=== PATIENT | male | born 1940 | race Caucasian/White ===

== ENCOUNTER → 2024-01-20 07:26 | Outpatient (REF) | payer MEDICARE, OTHER, SELFPAY ==
[2024-01-20 09:35] LABS: TSH 0.74 uIU/ml (0.47-4.68)
[2024-01-20 09:54] LABS: Vitamin B12 280 pg/ml (239-931)
[2024-01-20 16:30] LABS: Syphilis/T. pallidum Ab Reflex Negative (Negative)
== END ==
LOC: RAD 07:26
PROVIDERS: ATTENDING PHYSICIAN Psychiatry & Neurology Neurology; FAMILY PHYSICIAN Family Medicine
DX: R13.10 Dysphagia, unspecified (principal); R41.89 Other symptoms and signs involving cognitive functions and awareness; K46.0 Unspecified abdominal hernia with obstruction, without gangrene
CPT/HCPCS: 36415; 74230; 82607; 84443; 86780; 92611

== ENCOUNTER → 2024-02-10 09:36 | Outpatient (REF) | payer MEDICARE, OTHER, SELFPAY | LOC: MRI 3T 09:36 | PROVIDERS: ATTENDING PHYSICIAN Psychiatry & Neurology Neurology; FAMILY PHYSICIAN Family Medicine | DX: R41.89 Other symptoms and signs involving cognitive functions and awareness (principal) | CPT/HCPCS: 70553; A9575 ==

== ENCOUNTER → 2024-03-08 07:07 | Outpatient (REF) | payer MEDICARE, OTHER, SELFPAY ==
[2024-03-08 08:37] LABS: Glycohemoglobin (HgbA1c) 6.6 % (4.0-5.6)
[2024-03-08 09:18] LABS: Vitamin B12 474 pg/ml (239-931)
[2024-03-09 17:19] LABS: Syphilis/T. pallidum Ab Reflex Negative (Negative)
[2024-03-09 19:23] LABS: HIV Combo Negative (Negative)
[2024-03-11 03:10] LABS: Methylmalonic Acid 0.11 umol/L (0.00-0.40)
[2024-03-11 15:42] LABS: Alpha-Tocopherol 5.9 mg/L (5.5-18.0); Gamma-Tocopherol 0.5 mg/L (0.0-6.0)
[2024-03-12 11:01] LABS: Vitamin B1, Whole Blood 145 nmol/L (70-180)
[2024-03-12 12:29] LABS: Albumin 4.21 g/dL (3.75-5.01); Alpha 1 Globulin 0.29 g/dL (0.19-0.46); Alpha 2 Globulin 0.75 g/dL (0.48-1.05); Monoclonal Protein 0.27 g/dL (<=0.00); SPEP IFE Reflex IFE Done; Total Protein-Electrophoresis 6.7 g/dL (6.3-8.2)
== END ==
LOC: REG 07:07
PROVIDERS: ATTENDING PHYSICIAN Psychiatry & Neurology Neurology; FAMILY PHYSICIAN Family Medicine; OTHER PHYSICIAN Internal Medicine Gastroenterology; REFERRING PHYSICIAN Psychiatry & Neurology Neurology
DX: G62.9 Polyneuropathy, unspecified (principal); K86.1 Other chronic pancreatitis; Z79.899 Other long term (current) drug therapy
CPT/HCPCS: 36415; 82607; 82784; 83036; 83921; 84155; 84165; 84425; 84446; 86334; 86780; 87389

== ENCOUNTER → 2024-03-20 09:17 | Outpatient (REF) | payer MEDICARE, OTHER, SELFPAY | LOC: RAD 09:17 | PROVIDERS: ATTENDING PHYSICIAN Internal Medicine Gastroenterology; FAMILY PHYSICIAN Family Medicine; REFERRING PHYSICIAN Psychiatry & Neurology Neurology | DX: R13.10 Dysphagia, unspecified (principal) | CPT/HCPCS: 74221 ==

== ENCOUNTER → 2024-05-10 07:01 | Outpatient (REF) | payer MEDICARE, OTHER, SELFPAY ==
[2024-05-10 07:56] LABS: % Basophils 0.2 % (0-2); % Eosinophils 1.3 % (0-6); % Immature Granulocytes 0.3 % (0-0.5); % Lymphocytes 25.4 % (20.5-51.1); % Monocytes 6.1 % (1.7-9.3); % Neutrophils 66.7 % (42.2-75.2); Absolute Eosinophils 0.1 10^3/uL (0-0.7); Absolute Lymphocytes 2.3 10^3/uL (1.2-3.4); Absolute Monocytes 0.6 10^3/uL (0.1-0.6); Hematocrit 44.9 % (39.0-52.0); Hemoglobin 15.5 g/dL (13.0-18.0); Mean Corp Hgb Conc. 34.5 g/dL (33.0-37.0); Mean Corpuscular Hgb 32.9 pg (27.0-31.0); Mean Corpuscular Volume 95.3 fL (80.0-94.0); Mean Platelet Volume 9.4 fL (7.4-10.4); Nucleated Red Blood Cells % 0 % (-); Platelet Count 260 10^3/uL (130-400); Red Blood Cell Count 4.71 10^6/uL (4.70-6.10); Red Cell Dist. Width 12.3 % (11.5-14.5)
[2024-05-10 08:55] LABS: ALT (SGPT) 18 U/L (0-50); AST (SGOT) 22 U/L (17-59); Albumin 4.3 g/dl (3.5-5.0); Alkaline Phosphatase 57 U/L (38-126); Blood Urea Nitrogen 17 mg/dl (9-20); Calcium 8.9 mg/dl (8.4-10.2); Carbon Dioxide 28 mmol/L (22-30); Chloride 101 mmol/L (98-107); Glucose 117 mg/dl (70-99); HDL Cholesterol 35 mg/dl; LDL Cholesterol, Calculated 37 mg/dl; Potassium 5.1 mmol/L (3.5-5.1); Sodium 135 mmol/L (135-145); Total Bilirubin 0.7 mg/dl (0.2-1.3); Total Cholesterol 88 mg/dl (50-199); Total Protein 6.8 g/dl (6.3-8.2); Triglyceride 80 mg/dl (10-149); Very Low Density Lipoprotein 16 mg/dl (0-30); eGFR > 60.00
[2024-05-10 09:50] LABS: Glycohemoglobin (HgbA1c) 5.9 % (4.0-5.6)
== END ==
LOC: REG 07:01
PROVIDERS: ATTENDING PHYSICIAN Family Medicine; OTHER PHYSICIAN Internal Medicine Hematology & Oncology
DX: E11.69 Type 2 diabetes mellitus with other specified complication (principal); I10 Essential (primary) hypertension; E78.1 Pure hyperglyceridemia
CPT/HCPCS: 36415; 80053; 80061; 83036; 85025

== ENCOUNTER → 2024-06-02 09:25 | Outpatient (REF) | payer MEDICARE, OTHER, SELFPAY | LOC: PAVMRI 09:25 | PROVIDERS: ATTENDING PHYSICIAN Psychiatry & Neurology Neurology; FAMILY PHYSICIAN Family Medicine | DX: R93.7 Abnormal findings on diagnostic imaging of other parts of musculoskeletal system (principal) | CPT/HCPCS: 72141 ==

== ENCOUNTER → 2024-08-09 07:55 | Outpatient (REF) | payer MEDICARE, OTHER, SELFPAY ==
[2024-08-09 10:17] LABS: % Basophils 0.3 % (0-2); % Eosinophils 1.2 % (0-6); % Immature Granulocytes 0.4 % (0-0.5); % Lymphocytes 24.2 % (20.5-51.1); % Monocytes 5.6 % (1.7-9.3); % Neutrophils 68.3 % (42.2-75.2); Absolute Eosinophils 0.1 10^3/uL (0-0.7); Absolute Lymphocytes 2.5 10^3/uL (1.2-3.4); Absolute Monocytes 0.6 10^3/uL (0.1-0.6); Hematocrit 41.5 % (39.0-52.0); Hemoglobin 14.3 g/dL (13.0-18.0); Mean Corp Hgb Conc. 34.5 g/dL (33.0-37.0); Mean Corpuscular Hgb 32.3 pg (27.0-31.0); Mean Corpuscular Volume 93.7 fL (80.0-94.0); Mean Platelet Volume 9.2 fL (7.4-10.4); Nucleated Red Blood Cells % 0 % (-); Platelet Count 337 10^3/uL (130-400); Red Blood Cell Count 4.43 10^6/uL (4.70-6.10); Red Cell Dist. Width 12.5 % (11.5-14.5); White Blood Cell Count 10.3 10^3/uL (4.8-10.8)
[2024-08-09 10:59] LABS: ALT (SGPT) < 10 U/L (0-50); AST (SGOT) 17 U/L (17-59); Albumin 4.5 g/dl (3.5-5.0); Alkaline Phosphatase 65 U/L (38-126); Blood Urea Nitrogen 19 mg/dl (9-20); Calcium 9.4 mg/dl (8.4-10.2); Carbon Dioxide 25 mmol/L (22-30); Chloride 97 mmol/L (98-107); Glucose 142 mg/dl (70-99); Potassium 4.8 mmol/L (3.5-5.1); Sodium 136 mmol/L (135-145); Total Bilirubin 0.4 mg/dl (0.2-1.3); Total Protein 6.7 g/dl (6.3-8.2); eGFR > 60.00
[2024-08-11 01:17] LABS: Beta-2-Microglobulin 1.9 mg/L (<=3.0)
== END ==
LOC: REG 07:55
PROVIDERS: ATTENDING PHYSICIAN Internal Medicine Hematology & Oncology; FAMILY PHYSICIAN Family Medicine
DX: C88.0 Waldenstrom macroglobulinemia (principal)
CPT/HCPCS: 36415; 80053; 82232; 82784; 83521; 84155; 84165; 85025; 86334

== ENCOUNTER → 2024-11-23 06:37 | Outpatient (REF) | payer MEDICARE, OTHER, SELFPAY ==
[2024-11-23 07:52] LABS: ALT (SGPT) 27 U/L (0-50); AST (SGOT) 23 U/L (17-59); Albumin 4.3 g/dl (3.5-5.0); Alkaline Phosphatase 60 U/L (38-126); Blood Urea Nitrogen 13 mg/dl (9-20); Carbon Dioxide 27 mmol/L (22-30); Chloride 95 mmol/L (98-107); Glucose 111 mg/dl (70-99); HDL Cholesterol 35 mg/dl; LDL Cholesterol, Calculated 47 mg/dl; Potassium 4.6 mmol/L (3.5-5.1); Sodium 131 mmol/L (135-145); Total Bilirubin 0.3 mg/dl (0.2-1.3); Total Cholesterol 103 mg/dl (50-199); Total Protein 6.7 g/dl (6.3-8.2); Triglyceride 107 mg/dl (10-149); Very Low Density Lipoprotein 21 mg/dl (0-30); eGFR > 60.00
[2024-11-23 09:16] LABS: Microalbumin, Random Urine 14.3 mg/dl (0.6-1.7)
[2024-11-23 09:19] LABS: Microalbumin/creatinine Ratio 188.4 mg/g
[2024-11-23 11:32] LABS: Glycohemoglobin (HgbA1c) 5.7 % (4.0-5.6)
== END ==
LOC: REG 06:37
PROVIDERS: ATTENDING PHYSICIAN Internal Medicine Cardiovascular Disease; FAMILY PHYSICIAN Family Medicine
DX: E11.69 Type 2 diabetes mellitus with other specified complication (principal)
CPT/HCPCS: 36415; 80053; 80061; 82043; 82570; 83036

== ENCOUNTER → 2025-02-12 07:25 | Outpatient (REF) | payer MEDICARE, OTHER, SELFPAY ==
[2025-02-12 07:59] LABS: % Basophils 0.4 % (0-2); % Eosinophils 1.3 % (0-6); % Immature Granulocytes 0.5 % (0-0.5); % Monocytes 7.8 % (1.7-9.3); Absolute Eosinophils 0.1 10^3/uL (0-0.7); Absolute Lymphocytes 2.1 10^3/uL (1.2-3.4); Absolute Monocytes 0.6 10^3/uL (0.1-0.6); Absolute Neutrophils 4.9 10^3/uL (1.4-6.5); Hematocrit 43.1 % (39.0-52.0); Hemoglobin 14.5 g/dL (13.0-18.0); Mean Corp Hgb Conc. 33.6 g/dL (33.0-37.0); Mean Corpuscular Hgb 33.4 pg (27.0-31.0); Mean Corpuscular Volume 99.3 fL (80.0-94.0); Mean Platelet Volume 8.7 fL (7.4-10.4); Nucleated Red Blood Cells % 0 % (-); Platelet Count 261 10^3/uL (130-400); Red Blood Cell Count 4.34 10^6/uL (4.70-6.10); Red Cell Dist. Width 12.8 % (11.5-14.5); White Blood Cell Count 7.8 10^3/uL (4.8-10.8)
[2025-02-12 08:33] LABS: ALT (SGPT) 18 U/L (0-50); AST (SGOT) 15 U/L (17-59); Alkaline Phosphatase 70 U/L (38-126); Blood Urea Nitrogen 20 mg/dl (9-20); Calcium 9.4 mg/dl (8.4-10.2); Carbon Dioxide 29 mmol/L (22-30); Chloride 99 mmol/L (98-107); Glucose 139 mg/dl (70-99); Potassium 5.4 mmol/L (3.5-5.1); Sodium 134 mmol/L (135-145); Total Bilirubin 0.7 mg/dl (0.2-1.3); Total Protein 6.3 g/dl (6.3-8.2); eGFR > 60.00
[2025-02-13 20:59] LABS: Beta-2-Microglobulin 2.2 mg/L (<=3.0)
[2025-02-14 12:16] LABS: Albumin 4.12 g/dL (3.75-5.01); Alpha 1 Globulin 0.26 g/dL (0.19-0.46); Alpha 2 Globulin 0.72 g/dL (0.48-1.05); Free Kappa Light Chains,Quant 20.05 mg/L (3.30-19.40); IgA 117 mg/dL (68-408); IgG 514 mg/dL (768-1632); IgM 352 mg/dL (35-263); Immunofixation Electrophoresis IFE Done; Kappa/Lambda Fr Light Ratio 2.05 (0.26-1.65); Monoclonal Protein 0.26 g/dL (<=0.00); Total Protein-Electrophoresis 6.4 g/dL (6.3-8.2)
== END ==
LOC: REG 07:25
PROVIDERS: ATTENDING PHYSICIAN Internal Medicine Hematology & Oncology; FAMILY PHYSICIAN Family Medicine; REFERRING PHYSICIAN Internal Medicine Cardiovascular Disease
DX: C88.00 Waldenstrom macroglobulinemia not having achieved remission (principal); K56.609 Unspecified intestinal obstruction, unspecified as to partial versus complete obstruction
CPT/HCPCS: 36415; 80053; 82232; 82784; 83521; 84155; 84165; 85025; 86334

== ENCOUNTER → 2025-05-13 07:46 | Outpatient (REF) | payer MEDICARE, OTHER, SELFPAY ==
[2025-05-13 08:44] LABS: % Basophils 0.4 % (0-2); % Eosinophils 1.6 % (0-6); % Immature Granulocytes 0.4 % (0-0.5); % Lymphocytes 27.4 % (20.5-51.1); % Monocytes 7.5 % (1.7-9.3); % Neutrophils 62.7 % (42.2-75.2); Absolute Eosinophils 0.1 10^3/uL (0-0.7); Absolute Lymphocytes 2.1 10^3/uL (1.2-3.4); Absolute Monocytes 0.6 10^3/uL (0.1-0.6); Absolute Neutrophils 4.8 10^3/uL (1.4-6.5); Hematocrit 42.5 % (39.0-52.0); Hemoglobin 14.2 g/dL (13.0-18.0); Mean Corp Hgb Conc. 33.4 g/dL (33.0-37.0); Mean Corpuscular Hgb 33.5 pg (27.0-31.0); Mean Corpuscular Volume 100.2 fL (80.0-94.0); Mean Platelet Volume 8.9 fL (7.4-10.4); Nucleated Red Blood Cells % 0 % (-); Platelet Count 335 10^3/uL (130-400); Red Blood Cell Count 4.24 10^6/uL (4.70-6.10); Red Cell Dist. Width 12.6 % (11.5-14.5); White Blood Cell Count 7.6 10^3/uL (4.8-10.8)
[2025-05-13 09:41] LABS: ALT (SGPT) < 10 U/L (0-50); AST (SGOT) 14 U/L (17-59); Albumin 4.4 g/dl (3.5-5.0); Alkaline Phosphatase 45 U/L (38-126); Blood Urea Nitrogen 22 mg/dl (9-20); Calcium 9.1 mg/dl (8.4-10.2); Carbon Dioxide 26 mmol/L (22-30); Chloride 104 mmol/L (98-107); Glucose 133 mg/dl (70-99); HDL Cholesterol 38 mg/dl; LDL Cholesterol, Calculated 60 mg/dl; Sodium 137 mmol/L (135-145); Total Bilirubin 0.7 mg/dl (0.2-1.3); Total Cholesterol 116 mg/dl (50-199); Total Protein 6.4 g/dl (6.3-8.2); Triglyceride 91 mg/dl (10-149); Very Low Density Lipoprotein 18 mg/dl (0-30); eGFR > 60.00
[2025-05-13 10:23] LABS: Glycohemoglobin (HgbA1c) 5.9 % (4.0-5.6)
== END ==
LOC: REG 07:46
PROVIDERS: ATTENDING PHYSICIAN Family Medicine; FAMILY PHYSICIAN Internal Medicine Cardiovascular Disease
DX: E78.1 Pure hyperglyceridemia (principal); E11.69 Type 2 diabetes mellitus with other specified complication; I10 Essential (primary) hypertension
CPT/HCPCS: 36415; 80053; 80061; 83036; 85025

== ENCOUNTER 2025-05-27 17:46 | Emergency (ER) | payer MEDICARE, OTHER, SELFPAY ==
[2025-05-27 17:49] VITALS: BP 167/97
--- NOTE | 2025-05-27 18:26 | EDRN ---
Destiny Kirby PA in room w/ pt at this time.
[2025-05-27 18:33] VITALS: BMI 25.2
--- NOTE | 2025-05-27 18:33 | ED.GENMED ---
History of Present Illness
General
Chief Complaint: Foreign Body Ingestion
Source: patient
Time Seen by Provider: 05/27/25 18:26
History of Present Illness
History of Present Illness:
84-year-old male with past medical history of hypertension, pancreatitis, pbe-lpzsofc-[id number] diabetes, Parkinson's disease presenting to the emergency department at the request of his dentist for evaluation after he was getting dental work done
earlier today around 1030, piece of the equipment broke and patient accidentally swallowed the equipment. He had an x-ray ordered for him at outpatient facility with the foreign body noted to be likely within the stomach and was promptly sent to
the emergency department. Patient is without any pain presently, no difficulty breathing or any other concerns. Patient states that the dentist was concerned due to patient having constipation secondary to his Parkinson's medications. He follows
with Dr. Soni from GI.
Past History
Past History
ED Past Medical History: CAD, HTN, NIDDM and Other (chronic pancreatitis)
ED Past Surgical History: Appendectomy, Cardiac and Cholecystectomy
Social History
Tobacco: Non-smoker
Alcohol: Former
Drug: None
Personal:
Living: with family
Review of Systems
Review of Systems
All Other Systems: ROS reviewed and negative except as documented in HPI and ROS
Phy Exam
Physical Exam
Physical Exam:
GENERAL: Alert , in no apparent distress
HEAD: NCAT
EYE: clear conjunctiva
NECK: Supple
ENT: mmm.
CARDIAC: Regular rate and rhythm .
LUNGS: Clear breath sounds bilaterally, no acute respiratory distress, no wheezes/rales/rhonchi, no stridor
ABDOMEN: Soft, without focal tenderness, no r/g, no cvat
NEUROLOGICAL: Alert and oriented
SKIN: Warm and dry, skin intact.
PSYCH: Normal and appropriate interaction.
Scores
Heart Failure Risk
Heart Failure Risk Score: Not Applicable
Heart Score for Chest Pain Patients
STEMI patient?: Not applicable
Withdrawal Assessment of Alcohol
Withdrawal Assessment Completed?: Not applicable
Course
Orders/Labs/Results
Orders:
Orders
05/27/25 17:57
Abdominal Series [CR Obstruct Series W/pa Chest] Urgent
Comment:
Reason For Exam: pt swallowed foriegn object today at dentist
Vital Signs
Initial and Last Documented VS:
Initial Vital Signs
Temp Pulse Resp BP Pulse Ox
98.4 F 88 18 167/97 97
05/27/25 17:49 05/27/25 17:49 05/27/25 17:49 05/27/25 17:49 05/27/25 17:49
Last Documented Vital Signs
Temp Pulse Resp BP Pulse Ox
98.4 F 88 18 167/97 97
05/27/25 17:49 05/27/25 17:49 05/27/25 17:49 05/27/25 17:49 05/27/25 18:39
MDM/Problems Addressed
Differential Diagnosis Includes:
Accidental foreign body ingestion
No symptoms to suggest obstruction
Aspiration
Bowel perforation
MDM/Problems Addressed:
84-year-old male presenting to the ER for evaluation after he excellently swallowed a broken piece of dental equipment while getting dental work done today. He is in no complaints presently. X-ray from earlier today was reviewed with foreign body
appearing to be within the stomach, repeat obstructive series done now shows foreign body likely within the small bowel. Given he is without any pain, foreign body is moving and at present time does not appear to be able to be retrieved via
endoscopy will send patient home with return precautions to the ER for increased pain, fevers or, vomiting or any other concerns as well as needing a repeat abdominal x-ray within 2 to 3 days. Given he follows with GI here will notify them as well.
Anticipate patient is otherwise stable for discharge home.
*Radiology
Radiology exam reviewed: preliminary read by ED provider (Foreign body within the small bowel)
*Pulse Oximetry
SaO2: 97
Oxygen Mode of Delivery: Room air
Patient hypoxic: no
*Critical Care Note
Total Time (30-74mins, 75-104mins- exclusive of procedures): Not Applicable
Data Reviewed
Review of Other/Old Records Reveals: Radiology Studies
ED Attending Note
-
Portions of this chart may have been created with voice recognition software.� Occasional wrong word or��sound alike� substitutions may have occurred due to the inherent limitations of voice recognition software.
Discharge Plan
Departure
Patient Disposition: Home (Routine Discharge)
Date of Disposition: 05/27/25
Time of Disposition: 18:39
Patient with high blood pressure during this ER visit?: Yes
Discharge Problem:
Foreign body alimentary tract
Instructions: Swallowed Objects, Adult (DC)
Prescriptions:
No Action
brimonidine-timolol [Combigan] 1 DROP drops
1 drp BOTH EYES BID
loratadine 10 MG tablet
10 mg PO DAILYPRN PRN (Reason: allergies)
nitroglycerin 0.4 MG tablet, sublingual
0.4 mg sublingual [id number] PRN (Reason: chest pain) Qty: 25 0RF
aspirin 81 MG tablet,chewable
81 mg PO QPM
travoprost 0.004 % Drops
1 drp LEFT EYE HS
omega-3 fatty acids Capsule
3,000 mg PO DAILY
Rocklatan 0.02-0.005 % Drops
1 drp RIGHT EYE HS
Super Beta Prostate
1 tab PO BID
atorvastatin 10 mg Tablet
10 mg PO QPM
clopidogrel [Plavix] 75 mg Tablet
75 mg PO DAILY
acetaminophen 500 mg Tablet
500 mg PO Q6H PRN (Reason: pain)
isosorbide mononitrate 30 mg Tablet Extended Release 24 Hr
30 mg PO DAILY Qty: 90 3RF
Referrals:
Janice Snyder MD [Family Provider, Family Practice]
Interventions
Interventions:
*Risk Screen - Suicide Last Done: 05/27/25 18:33
*General Assessment Last Done: 05/27/25 18:33
*Neglect/Abuse Screening Last Done: 05/27/25 18:33
*ED- Fall Risk Assessment Last Done: 05/27/25 18:33
*ED COVID-19 Vaccine History Last Done: 05/27/25 18:33
*Nursing Disposition Last Done: 05/27/25 18:43
NG-Pdwufs-Kgulilcojz Assessment Last Done: 05/27/25 18:36
ED- Pulmonary Assessment Last Done: 05/27/25 18:36
ED-EENT Assessment Last Done: 05/27/25 18:36
Discharge Date and Time
Discharge Date/Time: 05/27/25 18:43
Print Language: TANZANIAN
== END 2025-05-27 18:43 | disposition home or self-care (01) ==
LOC: EMR 17:46
PROVIDERS: EMERGENCY PHYSICIAN Emergency Medicine; FAMILY PHYSICIAN Family Medicine
DX: T18.3XXA Foreign body in small intestine, initial encounter (principal); W44.8XXA Other foreign body entering into or through a natural orifice, initial encounter; I10 Essential (primary) hypertension; E11.9 Type 2 diabetes mellitus without complications; G20.A1 Parkinson's disease without dyskinesia, without mention of fluctuations; I25.10 Atherosclerotic heart disease of native coronary artery without angina pectoris; K86.1 Other chronic pancreatitis; Z90.49 Acquired absence of other specified parts of digestive tract; Z88.8 Allergy status to other drugs, medicaments and biological substances
CPT/HCPCS: 99283; 71046; 74018; 74022

== ENCOUNTER → 2025-05-31 08:37 | Outpatient (REF) | payer MEDICARE, OTHER, SELFPAY | LOC: RAD 08:37 | PROVIDERS: FAMILY PHYSICIAN Family Medicine; OTHER PHYSICIAN Internal Medicine Gastroenterology | DX: T18.8XXA Foreign body in other parts of alimentary tract, initial encounter (principal) | CPT/HCPCS: 74018 ==

== ENCOUNTER → 2025-06-20 10:35 | Outpatient (REF) | payer MEDICARE, OTHER, SELFPAY | LOC: RAD 10:35 | PROVIDERS: ATTENDING PHYSICIAN Family Medicine; OTHER PHYSICIAN Internal Medicine Gastroenterology | DX: T18.9XXD Foreign body of alimentary tract, part unspecified, subsequent encounter (principal) | CPT/HCPCS: 74019 ==

== ENCOUNTER → 2025-06-27 07:45 | Outpatient (REF) | payer MEDICARE, OTHER, SELFPAY | LOC: RAD 07:45 | PROVIDERS: FAMILY PHYSICIAN Family Medicine; OTHER PHYSICIAN Internal Medicine Gastroenterology | DX: T18.8XXA Foreign body in other parts of alimentary tract, initial encounter (principal) | CPT/HCPCS: 74018 ==

== ENCOUNTER → 2025-08-06 07:09 | Outpatient (REF) | payer MEDICARE, OTHER, SELFPAY ==
[2025-08-06 07:44] LABS: Hematocrit 41.7 % (39.0-52.0); Hemoglobin 14.4 g/dL (13.0-18.0); Mean Corp Hgb Conc. 34.5 g/dL (33.0-37.0); Mean Corpuscular Volume 94.6 fL (80.0-94.0); Nucleated Red Blood Cells % 0 % (-); Platelet Count 289 10^3/uL (130-400); Red Cell Dist. Width 12.0 % (11.5-14.5)
[2025-08-06 08:16] LABS: ALT (SGPT) 16 U/L (0-50); AST (SGOT) 14 U/L (17-59); Albumin 4.4 g/dl (3.5-5.0); Alkaline Phosphatase 51 U/L (38-126); Blood Urea Nitrogen 19 mg/dl (9-20); Calcium 9.3 mg/dl (8.4-10.2); Carbon Dioxide 27 mmol/L (22-30); Chloride 98 mmol/L (98-107); Glucose 133 mg/dl (70-99); Potassium 5.3 mmol/L (3.5-5.1); Sodium 131 mmol/L (135-145); Total Protein 6.6 g/dl (6.3-8.2); eGFR > 60.00
== END ==
LOC: REG 07:09
PROVIDERS: ATTENDING PHYSICIAN Internal Medicine Hematology & Oncology; FAMILY PHYSICIAN Family Medicine; OTHER PHYSICIAN Internal Medicine Cardiovascular Disease
DX: C88.00 Waldenstrom macroglobulinemia not having achieved remission (principal); K56.609 Unspecified intestinal obstruction, unspecified as to partial versus complete obstruction
CPT/HCPCS: 36415; 80053; 82232; 82784; 83521; 84155; 84165; 85025; 86334